=== PATIENT | male | born 1950 | race Caucasian/White ===

== ENCOUNTER 2018-05-19 07:10 | Day surgery (SDC) | payer MEDICARE, OTHER ==
--- NOTE | 2018-05-18 18:28 | History and Physical - Ferro ---
DATE OF EVALUATION: 05/18/18 CHIEF COMPLAINT/HISTORY OF CHIEF COMPLAINT: This patient with a history of a post lumbar laminectomy radiculopathy has an implanted spinal infusion system pump at the left lower abdominal quadrant. The infusion Hydromorphone, the base rate 10 mg a day. Over the last number refills, battery depletion was identified. He is here for battery replacement without parameter change. PAST MEDICAL HISTORY: Hepatitis. Radiculopathy post lumbar laminectomy. PAST SURGICAL HISTORY: Lumbar spinal surgery. Pump implant. ALLERGIES: NONE. SOCIAL HISTORY: Caffeine. FAMILY HISTORY: Negative. SYSTEMS REVIEW: The patient is appropriate in no acute distress. Remainder of the systems review; noncontributory. PHYSICAL EXAMINATION: GENERAL: Height is 5'10", weight is 250. VITAL SIGNS: No vital signs. HEENT: Within normal limits. LUNGS: Clear. HEART: Rapid and regular. ABDOMEN: Nontender. MUSCULOSKELETAL: Examination of the musculoskeletal system shows the pump in the left lower abdominal quadrant. The incision is intact. His primary pain pattern is bilateral lower extremity with motor and sensory abnormalities and indications of post laminectomy radiculopathy. Sensory buck are intact. NEUROLOGIC: Cranial nerves are intact. IMPRESSION: 1. POST LUMBAR LAMINECTOMY SYNDROME, ICD-10 CODE = M96.1 WITH RADICULOPATHY, ICD -10 CODE = M54.16 AND M54.17. 2. SPINAL OPIOID INFUSION SYSTEM HYDROMORPHONE. PLAN: The patient is here on an outpatient basis for battery change. No parameter changes will be made. The procedure will be considered outpatient. cc: Aisha Ramirez D.O. JOB NUMBER: [id number] MTDD
[~2018-05-19 07:10] MED LIST: ACETAMINOPHEN 1,000 MG/100 ML BTL IV ONE; CEFAZOLIN 2 Gram 2 GM/50 ML BAG IVPB ONE; FAMOTIDINE 20MG TABLET PO ONE; HYDROMORPHONE HCL IV ONE; HYDROMORPHONE PF 2MG/ML AMP 0.008 MG in 0.9 % SODIUM CHLORIDE 10ML VIA 0.996 ML IV ONE; MECLIZINE 25 MG TABLET PO ONE; METOCLOPRAMIDE 10 MG TABLET PO ONE; SODIUM CHLORIDE 0.9% IV ONE
[2018-05-19] MEDS ORDERED: MIDAZOLAM HCL 2MG/2ML VIAL IV ONE (07:11)
[2018-05-19] MEDS ORDERED: FENTANYL PF 100MCG/2ML VIAL IV ONE (07:11)
[2018-05-19] MEDS ORDERED: PROPOFOL 10 MG/ML VIAL IV ONE (07:11)
[2018-05-19] MEDS ORDERED: LIDOCAINE 2% MDV (20MG/ML) 20ML VIAL IV ONE (07:11)
[2018-05-19] MEDS ORDERED: CEFAZOLIN 1G VIAL IM ONE (07:11)
[2018-05-19] MEDS ORDERED: 0.9 % SODIUM CHLORIDE 10 ML VIAL IVP ONE (07:11)
[2018-05-19] MEDS ORDERED: LIDOCAINE 1% W/EPI 1:200,000 MPF 30ML SQ ONE (07:11)
[2018-05-19] MEDS ORDERED: BUPIVACAINE 0.5% W/EPI MPF 30 ML VIAL IVP ONE (07:11)
[2018-05-19 07:43] LABS: INR 1.1; PARTIAL THROMBOPLASTIN TIME 29.6 SECONDS (24.5-39.1); PROTHROMBIN TIME (PATIENT) 10.6 SECONDS (9.5-12.1)
--- NOTE | 2018-05-20 17:05 | Operative Note - Ferro ---
DATE OF SURGERY: 05/19/18 PREOPERATIVE DIAGNOSES: 1. POST LUMBAR LAMINECTOMY SYNDROME, ICD-10 CODE = M96.1, WITH RADICULOPATHY, ICD-10 CODE = M54.16 AND M54.17. 2. IMPLANTED SPINAL INFUSION TRIAL HYDROMORPHONE, BATTERY DEPLETION. OPERATION: INCISION, SUBCUTANEOUS DISSECTION, AND REMOVAL AND REPLACEMENT OF PROGRAMMABLE PUMP AT RIGHT INFERIOR ABDOMINAL QUADRANT. SURGEON: TYREL PATEL D.O. ANESTHESIA: LOCAL SEDATION. ANESTHESIA PROVIDER: WAI Klein. INDICATION: This patient with a history of post lumbar laminectomy and radiculopathy has a spinal infusion system infusing Hydromorphone. Over the last number refills, battery depletion identified. He is here for battery replacement without parameter change. PROCEDURE: Intravenous line, vital sign monitoring, IV sedation, prepped and draped with sterile technique. Under imaging, with the patient supine, the pump at the right lower abdominal quadrant identified, skin infiltrated, incision made, and subcutaneous dissection was conducted to the Dacron sleeve. The sleeve was opened, the pump exteriorized. The pump was then from the indwelling catheter and a new pump 40 mL Programmable pre-filled Hydromorphone placed onto the field then interfaced with the indwelling catheter. Antibiotic irrigation and Bovie for hemostasis. The pump was placed into the pouch and the incision was closed using STRATAFIX suture 2-0 fascia, 3-0 skin. The Dacron sleeve had been resected. Dermabond closure approximating the edges of the wound. The patient was transported to the Recovery Room, stable, no side- effects from the procedure or the sedation. DISCHARGE INSTRUCTIONS: 1. Sites remain clean and dry although the Dermabond will allow showering, he should not sit in water. 2. Standard medications resumed including the antibiotic Levaquin. He will take 500 mg once a day for 14 days. 3. The office will contact the patient in 24-48 hours to set up a time in the next 7-10 days to evaluate the sites. Until then, activities should stay controlled. He was then discharged stable. Potential side-effects from spinal opioids, respiratory depression, nausea, vomiting, constipation, urinary retention, lightheadedness, or rash; if any of this happens, contact the clinic or go a local Emergency Room. cc: Aisha Ramirez D.O. JOB NUMBER: [id number] [facility]
== END 2018-05-19 10:15 | disposition home or self-care (01) ==
LOC: SUR 07:10
PROVIDERS: ATTEND Pain Medicine Interventional Pain Medicine
DX: M96.1 Postlaminectomy syndrome, not elsewhere classified (principal); M54.16 Radiculopathy, lumbar region; M54.17 Radiculopathy, lumbosacral region; E11.9 Type 2 diabetes mellitus without complications; E78.00 Pure hypercholesterolemia, unspecified
CPT/HCPCS: 62360; 00300; 62368; 85730; 85610; 36416; 82948; 85002; Q9967; J3010; J0690; J1170; C1776

== ENCOUNTER 2018-11-24 08:30 | Day surgery (SDC) | payer MEDICARE, OTHER ==
--- NOTE | 2018-11-24 06:59 | History and Physical - Ferro ---
CHIEF COMPLAINT/HISTORY OF CHIEF COMPLAINT: This patient presents with a history of an intractable post lumbar laminectomy radiculopathy. An intraspinal infusion system is in place which is infusing Hydromorphone has been found to have a volume discrepancy during refills. Attempted diagnostics were unsuccessful which suggested a catheter obstruction or malfunction. Over a series of sessions his spinal infusion has been titrated down from 10 mg a day to 5 mg a day. He is here for a catheter revision and re-initiation of his infusion therapy. PAST MEDICAL HISTORY: Depression, hepatitis, and intractable radiculopathy. PAST SURGICAL HISTORY: Multiple upper extremity surgeries, shoulder surgery, hand surgery, and lumbar spinal infusion and pump implant. MEDICATIONS ON ADMISSION: List to be provided. ALLERGIES: None. FAMILY/PSYCHOSOCIAL HISTORY: Family history - Coronary artery disease, hypertension, and cancer. Social history - Caffeine. SYSTEMS REVIEW: The patient is appropriate in no acute distress. The remainder of the systems review is noncontributory. PHYSICAL EXAMINATION: Height is 5'10", weight is 250. No vital signs. HEENT: Within normal limits. LUNGS: Clear. HEART: Rapid and regular. ABDOMEN: Nontender. MUSCULOSKELETAL: Examination of the musculoskeletal system shows the pump in the right lower abdominal quadrant. The incision is intact. His midline spinal catheter placement site is noted and intact. His underlying pain pattern is a post lumbar laminectomy radiculopathy. Bilateral lower extremity pain is noted. Circumferentially multiple dermatomes. Motor and sensory abnormalities are noted across the front and back surface. NEUROLOGIC: Cranial nerves are intact. IMPRESSION: 1. POST LUMBAR LAMINECTOMY SYNDROME, ICD-10 CODE M96.1 WITH RADICULOPATHY, ICD- 10 CODE M54.16 AND M54.17. 2. IMPLANTED SPINAL INFUSION SYSTEM USING HYDROMORPHONE WITH SPINAL CATHETER MALFUNCTION. PLAN: The patient is here for revision with removal and replacement of the spinal catheter. We will reattach the catheter to the indwelling pump without any changes to the device itself. The procedure will require an overnight stay. The potential risks, side effects and complications have all been carefully reviewed and discussed. He has been placed on medications previous to this procedure for withdrawal symptom management and has been kept on his opioids throughout the titration. We will evaluate his status at the end of the procedure to determine if an overnight stay is sufficient. JOB NUMBER: [id number] [facility]
[~2018-11-24 08:30] MED LIST changes: -ACETAMINOPHEN 1,000 MG/100 ML BTL IV ONE; +ACETAMINOPHEN 1,000 MG/100 ML BTL IVPB ONE
[2018-11-24] MEDS ORDERED: FENTANYL PF 100MCG/2ML VIAL IV ONE (08:31)
[2018-11-24] MEDS ORDERED: ONDANSETRON HCL IV 4 MG/2 ML VIAL IVP ONE (08:31)
[2018-11-24] MEDS ORDERED: PROPOFOL 10 MG/ML VIAL IV ONE (08:31)
[2018-11-24] MEDS ORDERED: LIDOCAINE 2% MDV (20MG/ML) 20ML VIAL IV ONE (08:31)
[2018-11-24] MEDS ORDERED: MIDAZOLAM HCL 2MG/2ML VIAL IV ONE (08:31)
[2018-11-24] MEDS ORDERED: GLYCOPYRROLATE 0.2 MG/ML ML IV ONE (08:31)
[2018-11-24] MEDS ORDERED: ESMOLOL HCL 100 MG/10 ML ML IVP ONE (08:31)
[2018-11-24] MEDS ORDERED: HYDROMORPHONE HCL 2 MG/ML VIAL IV ONE (08:31)
[2018-11-24] MEDS ORDERED: METOPROLOL TART 5 MG/5 ML VIAL IV ONE (08:31)
[2018-11-24] MEDS ORDERED: RINGERS SOLUTION,LACTATED 1,000 ML IV ONE ×3 (11:48→13:20)
[2018-11-24] MEDS ORDERED: LIDOCAINE 1% W/EPI 1:200,000 MPF 30ML SQ ONE (12:20)
[2018-11-24] MEDS ORDERED: BUPIVACAINE 0.5% W/EPI MPF 30 ML VIAL SQ ONE (12:20)
[2018-11-24] MEDS ORDERED: CAFFEINE/SODIUM BENZOATE 250MG 500 MG in 0.9 % SODIUM CHLORIDE 100ML 100 ML IVPB ONE (14:34)
[2018-11-24] MEDS ORDERED: DIPHENHYDRAMINE HCL 25 MG CAPSULE PO PRN ×2 (15:30)
[2018-11-24] MEDS ORDERED: METOCLOPRAMIDE HCL 10 MG/2 ML VIAL IVP PRN (15:30)
[2018-11-24] MEDS ORDERED: AL HYDROX/MAG HYDROX 30ML UD PO PRN (15:30)
[2018-11-24] MEDS ORDERED: OXYCODONE/APAP 10MG-325MG TABLET PO PRN ×2 (15:30)
[2018-11-24] MEDS ORDERED: HYDROMORPHONE HCL 2 MG/ML VIAL IM PRN (15:30)
[2018-11-24] MEDS ORDERED: METOCLOPRAMIDE 10 MG TABLET PO PRN (15:30)
[2018-11-24] MEDS ORDERED: ACETAMINOPHEN 325 MG TAB PO PRN ×2 (15:30)
[2018-11-24] MEDS ORDERED: DIPHENHYDRAMINE HCL 50 MG/ML VIAL IVP PRN ×2 (15:30)
[2018-11-24] MEDS ORDERED: SENNOSIDES/DOCUSATE SODIUM UD CAPSULE PO PRN ×2 (15:30)
[2018-11-24] MEDS ORDERED: TEMAZEPAM 15 MG CAPSULE PO PRN ×2 (15:30)
[2018-11-24] MEDS ORDERED: HYDROCODONE/APAP 7.5/325MG TABLET PO PRN (15:30)
[2018-11-24] MEDS ORDERED: NALOXONE 0.4 MG/1 ML VIAL IVP PRN (15:30)
[2018-11-24] MEDS: RINGERS SOLUTION,LACTATED 1,000 ML IV SCH (15:46)
[2018-11-24] MEDS: HYDROCODONE/APAP 7.5/325MG TABLET PO PRN ×2 (17:03→20:11)
[2018-11-24] MEDS: CEFAZOLIN 2 Gram 2 GM/50 ML BAG IVPB SCH (20:12)
[2018-11-24] MEDS: HYDROMORPHONE HCL 2 MG/ML VIAL IM PRN (22:39)
[2018-11-25] MEDS: HYDROCODONE/APAP 7.5/325MG TABLET PO PRN ×4 (00:38→09:38)
[2018-11-25] MEDS: RINGERS SOLUTION,LACTATED 1,000 ML IV SCH (00:38)
[2018-11-25] MEDS: CEFAZOLIN 2 Gram 2 GM/50 ML BAG IVPB SCH ×2 (03:38→13:33)
[2018-11-25] MEDS: HYDROMORPHONE HCL 2 MG/ML VIAL IM PRN (05:15)
[2018-11-25] MEDS ORDERED: LORATADINE 10 MG TABLET PO SCH (10:00)
--- NOTE | 2018-11-26 11:01 | Operative Note ---
DATE OF SURGERY: 11/24/2018 PREOPERATIVE DIAGNOSES: 1. Post lumbar laminectomy syndrome ICD 10 code M96.1 with radiculopathy ICD 10 code M54.16 and M54.17. 2. Implanted spinal fusion system hydromorphone with catheter malfunction. OPERATION: 1. Fluoroscopic-guided incision and subcutaneous dissection and removal of spinal catheter. 2. Fluoroscopic-guided placement of 20-gauge spinal needle in the subarachnoid space at L2-3, placement of thin wall spinal catheter T11. 3. Diagnostic myelography with radiologic supervision interpretation. 4. Incision subcutaneous dissection and remove an exteriorized pump at right lower abdominal quadrant, revision of abdominal pouch. 5. Tunneling spinal catheter from midline into abdominal pouch, interface catheter revised, new to pump. 6. Placement of pump into abdominal pouch, securing the posterior fascia with nonabsorbable suture. 7. Placement of curved 24-gauge Munoz needle to access port for abdominal pump aspirating clearing catheter of opioid and CSF mixture. Diagnostic myelography with radiologic supervision interpretation. 8. Closure of both incisions using 2-0 Vicryl, rosi for skin. Op-Site dressing placed. 9. Programming of pump to deliver by continuous infusion hydromorphone 3.78 mg a day. SURGEON: Derrick Beltrán D.O. ANESTHESIA: Local sedation. ANESTHESIA PROVIDER: JAILENE. INDICATION: This patient presents with a history of post laminectomy radiculopathy. A spinal fusion system infusing hydromorphone in place. With progressively increasing residual volumes and probable catheter malfunction, the patient has had a series of reductions from a 10 mg infusion rate to 3.78 mg a day. He is here for catheter replacement. PROCEDURE: Intravenous line, vital sign monitoring, IV sedation, prepped and draped in sterile technique. The patient positioned in a modified Sadler' position, pump right side up. Sterile prep, sterile technique. Under imaging, the spinal catheter insertion site at approximately L3-4 was marked, infiltrated, incision made and subcutaneous dissection was conducted to the anchor suture cut. A pursestring suture placed and then the catheter was slowly retracted out of the space. Immediately noted was the catheter had a distal fragmentation. The component of the catheter in the space was frayed and had obviously and broken in the spinal space. The component of the catheter which could be removed was removed. An aggregate or obstruction at the distal frayed portion was noted, again confirming obstruction and poor functionality of the catheter. Pursestring suture was tied to limit CSF loss. A 20-gauge needle under imaging with AP and lateral imaging was positioned into the spinal space at L2-3. With CSF flow, a thin wall spinal catheter was advanced, positioned T11. Diagnostic myelography confirmed the catheter position. The needle was removed and the catheter was anchored to the supraspinous fascia with nonabsorbable suture. The right lower quadrant abdominal pouch was infiltrated with local. Incision was made, subcutaneous dissection was conducted to the pouch, the pouch was opened and the pump exteriorized. The pump component of the removed catheter was then removed from the pump. The new catheter was tunneled across the flank into the abdominal pouch. An intermediate incision was required. The catheter in the pouch was then resected with a second catheter component that would interface to the pump by way of connector. The new revised catheter was then interfaced to the pump, antibiotic irrigation and Bovie hemostasis. The pump was placed into the pouch and secured to the fascia with nonabsorbable suture 2 points pump eyelets. With the pump in the pouch, a curved Munoz needle was inserted in the access port. Aspiration performed clearing catheter of opioid and CSF mixture and diagnostic myelography was then performed a second time confirming functionality of the pump in the pouch. At that point, both incisions were closed using 2-0 Vicryl and rosi for skin. Op-Site dressing placed. The pump was then programmed to the usual parameters at 3.78 mg hydromorphone a day. He was transported to the recovery room stable. No blood patch performed. He will be given intravenous caffeine as a measure against a spinal headache. He was transported to the recovery room. He will be kept overnight. He had full functionality of the extremities. There was no unusual pain patterns. We will monitor and evaluate overnight and discharge in the morning. DISCHARGE INSTRUCTIONS: 1. The sites to remain clean and dry. No showering or bathing in any way that would disrupt dressings. If it happens, contact the clinic. 2. Standard medications resumed, including the antibiotic Levaquin 500 mg once a day for 14 days. 3. Spinal opioid side effects of respiratory depression, nausea, vomiting, constipation, urinary retention, lightheadedness, or rash were discussed and reviewed. He will have his first increase within the next 2 to 3 days, time set and scheduled through the [employer] customer success representative. All instructions provided. MTDD
== END 2018-11-25 10:30 | disposition home or self-care (01) ==
LOC: SUR 08:30 → MEDSURG 15:12 → SUR 11-25 10:30
PROVIDERS: ATTEND Pain Medicine Interventional Pain Medicine
DX: M54.16 Radiculopathy, lumbar region (principal); M54.17 Radiculopathy, lumbosacral region; E11.9 Type 2 diabetes mellitus without complications
CPT/HCPCS: 36416; 62368; 82948; 85002; 93005; J2405; J3490; J7120